=== PATIENT | female | born 1980 | race African-American/Black ===

== ENCOUNTER 2017-05-04 10:29 | Emergency (ER) | END 2017-05-04 14:48 | disposition home or self-care (01) | DX: O99.322 Drug use complicating pregnancy, second trimester (principal); R10.2 Pelvic and perineal pain; F12.90 Cannabis use, unspecified, uncomplicated; F15.90 Other stimulant use, unspecified, uncomplicated; O99.332 Smoking (tobacco) complicating pregnancy, second trimester; F17.210 Nicotine dependence, cigarettes, uncomplicated; Z3A.19 19 weeks gestation of pregnancy | CPT/HCPCS: 36415; 76805; 80053; 80306; 80307; 81001; 83690; 84702; 85025; 86900; 86901; Z7502 ==

== ENCOUNTER 2017-08-20 09:59 | Outpatient (CLI) | payer OTHER ==
[~2017-08-20] VITALS: Ht 180.3 cm; Wt 81.8 kg
[~2017-08-20 09:59] MED LIST: CALC-5 PO; FERR240T9 PO; HYDR50SO PO; OMEP40CA6 PO; PRENAT PO; SERT-165 PO
[2017-08-20 10:25] VITALS: BP 102/56; PULSE 72; RESP 19; Ht 180.3 cm; Wt 81.8 kg
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
== END 2017-08-20 12:28 | disposition home or self-care (01) ==
LOC: OBT 09:59 → L-D 10:01 → OBT 12:28
DX: O9A.213 Injury, poisoning and certain other consequences of external causes complicating pregnancy, third trimester (principal); S39.91XA Unspecified injury of abdomen, initial encounter; W51.XXXA Accidental striking against or bumped into by another person, initial encounter; Y92.89 Other specified places as the place of occurrence of the external cause; O99.343 Other mental disorders complicating pregnancy, third trimester; F32.9 Major depressive disorder, single episode, unspecified; O99.323 Drug use complicating pregnancy, third trimester; F15.10 Other stimulant abuse, uncomplicated; Z3A.34 34 weeks gestation of pregnancy
CPT/HCPCS: 76818; Z7500; G0463